=== PATIENT | female | born 1975 | race African-American/Black ===

== ENCOUNTER 2021-06-16 04:38 | Day surgery (SDC) | payer OTHER ==
[2021-06-12 16:09] VITALS: BMI 19.3
[2021-06-16] MEDS ORDERED: SUCCINYLCHOLINE CHLORIDE 200 MG/10 ML SYRINGE ONE (07:51)
[2021-06-16] MEDS ORDERED: GLYCOPYRROLATE 0.2 MG/1 ML VIAL ONE (07:51)
[2021-06-16] MEDS ORDERED: ROCURONIUM BROMIDE 50 MG/5 ML SYRINGE ONE (07:51)
[2021-06-16] MEDS ORDERED: PROPOFOL 20 ML ONE ×3 (07:51)
[2021-06-16] MEDS ORDERED: DEXAMETHASONE SOD PHOSPHATE 4 MG/1 ML VIAL ONE (07:51)
[2021-06-16] MEDS ORDERED: LIDOCAINE HCL/PF 2% SDV 5ML VIAL ONE (07:51)
[2021-06-16] MEDS ORDERED: MIDAZOLAM HCL 2 MG/2 ML SINGLE DOSE VIAL ONE (07:51)
[2021-06-16] MEDS ORDERED: ceFAZolin SODIUM 1 GM VIAL IVPB ONE (09:30)
[2021-06-16] MEDS ORDERED: NEOSTIGMINE METHYLSULFATE 0.5 MG/ML - 10 ML MDV ONE (10:23)
[2021-06-16] MEDS ORDERED: BUPIVACAINE HCL/PF 0.5% (5MG/ML) 10 ML VIAL ONE (10:24)
[2021-06-16] MEDS ORDERED: BUPIVACAINE HCL/PF 0.5% (5MG/ML) 10 ML VIAL NR ONE (10:30)
[2021-06-16] MEDS ORDERED: ACETAMINOPHEN INJECTION 100 ML IVPB ONE (10:55)
[2021-06-16] MEDS ORDERED: oxyCODONE HCL 5 MG TABLET PO PRN ×2 (11:35)
[2021-06-16] MEDS ORDERED: ACETAMINOPHEN 1000 MG/100 ML BAG IVPB ONE (11:35)
[2021-06-16] MEDS ORDERED: ONDANSETRON 4 MG/2 ML VIAL IVPUSH PRN (11:35)
[2021-06-16] MEDS ORDERED: LACTATED RINGERS SOLUTION 1,000 ML IV SCH (11:45)
[2021-06-16] MEDS ORDERED: HYDROmorphone HCL CARPU-JECT 2 MG/1 ML DISP.SYRIN IVPUSH ONE (12:26)
[2021-06-16] MEDS ORDERED: HYDROmorphone HCl 2 MG/ML VIAL ONE (12:28)
[2021-06-16] MEDS ORDERED: ONDANSETRON 4 MG/2 ML VIAL ONE (14:54)
[2021-06-16] MEDS ORDERED: oxyCODONE HCL 5 MG TABLET ONE (14:55)
[2021-06-16 19:54] VITALS: BP 119/76; PULSE 83; TEMP 97.3
== END 2021-06-16 20:02 | disposition home or self-care (01) ==
LOC: JASU-SURG 04:38
PROVIDERS: ATTEND Obstetrics & Gynecology
PROC: 0UJD8ZZ Inspection of Uterus and Cervix, Via Natural or Artificial Opening Endoscopic (ICD-10-PCS; 2021-06-16)
PROC: 0UB14ZZ Excision of Left Ovary, Percutaneous Endoscopic Approach (ICD-10-PCS; 2021-06-16)
PROC: 0UB64ZZ Excision of Left Fallopian Tube, Percutaneous Endoscopic Approach (ICD-10-PCS; 2021-06-16)
PROC: 0UDB7ZX Extraction of Endometrium, Via Natural or Artificial Opening, Diagnostic (ICD-10-PCS; principal; 2021-06-16 09:00)
DX: N92.1 Excessive and frequent menstruation with irregular cycle (principal); D25.0 Submucous leiomyoma of uterus; N83.292 Other ovarian cyst, left side; D25.2 Subserosal leiomyoma of uterus
CPT/HCPCS: 81025; 86850; 86900; 86901; 88108; 88305-TC; 88307-TC; 94760

== ENCOUNTER 2021-10-19 22:15 | Emergency (ER) | payer OTHER ==
[2021-10-19 22:24] VITALS: BP 119/76; PULSE 87; RESP 19; TEMP 98.3; BMI 19.3
[2021-10-19 23:18] LABS: EOS % 1.6 % (0-4.5); HEMOGLOBIN 11.6 GM/dL (10.7-15.3); LYMPH % 37.6 % (8-40); MCH 32.3 pg (25.7-33.7); MCHC 34.3 g/dl (32.0-36.0); MEAN CELL VOLUME 94.2 fl (80-96); MEAN PLT VOLUME 7.8 fl (7.5-11.1); MONO % 12.7 % (3.8-10.2); NEUT % 47.1 % (42.8-82.8); PLATELET COUNT 218 10^3/uL (134-434); RBC 3.61 M/mm3 (3.60-5.2); RDW 13.7 % (11.6-15.6); WHITE BLOOD COUNT 4.8 K/mm3 (4.0-10.0)
[2021-10-19 23:25] LABS: INR 1.18 (0.83-1.09); PROTHROMBIN TIME (PATIENT) 13.6 SEC (9.7-13.0)
[2021-10-19 23:28] LABS: ACTIVATED PTT 28.1 SECONDS (25.2-36.5)
[2021-10-20 01:53] LABS: EPI CELLS >36 /uL (0-25.1); HYALINE CASTS 0 /uL (0-3.1); PH,URINE 6.5 (5.0-8.0); URINE APPEARANCE CLEAR; URINE BACTERIA 16 /uL (0-1359); URINE BILIRUBIN NEGATIVE (NEGATIVE); URINE COLOR YELLOW; URINE GLUCOSE (UA) NEGATIVE (NEGATIVE); URINE KETONE NEGATIVE (NEGATIVE); URINE LEUK ESTERASE NEGATIVE (NEGATIVE); URINE NITRITE NEGATIVE (NEGATIVE); URINE PROTEIN NEGATIVE (NEGATIVE); URINE RBC 41 /uL (0-23.9); URINE UROBILINOGEN 0.2 mg/dL (0.2-1.0); URINE WBC 10 /uL (0-25.8)
== END 2021-10-20 02:47 | disposition home or self-care (01) ==
LOC: JER 22:15
DX: O26.891 Other specified pregnancy related conditions, first trimester (principal); R53.83 Other fatigue; Z3A.01 Less than 8 weeks gestation of pregnancy
CPT/HCPCS: 36415; 76830-TC; 81003; 84702; 85025; 85610; 85730; 86850; 86900; 86901; 87086; 93005; 93010; 99285-25

== ENCOUNTER 2022-05-29 18:25 | Inpatient (IN) | payer OTHER ==
[2022-05-29] MEDS ORDERED: PROMETHAZINE HCL 25 MG/1 ML VIAL IVPB ONE (19:54)
[2022-05-29] MEDS ORDERED: BUTORPHANOL TARTRATE 2 MG/ML VIAL IVPUSH ONE (19:54)
[2022-05-29] MEDS ORDERED: AMPICILLIN - 2 GM in SODIUM CHLORIDE 100 ML IVPB ONE (19:55)
[2022-05-29] MEDS ORDERED: OXYTOCIN 30 UNITS in 0.9% NS 30 UNIT/500 ML INFUS.BAG IVPB SCH (20:15)
[2022-05-29 20:38] LABS: BASO % 0.1 % (0-2.0); EOS % 0.3 % (0-4.5); HEMATOCRIT 27.5 % (32.4-45.2); HEMOGLOBIN 9.7 GM/dL (10.7-15.3); LYMPH % 15.4 % (8-40); MCH 34.5 pg (25.7-33.7); MCHC 35.3 g/dl (32.0-36.0); MEAN CELL VOLUME 97.8 fl (80-96); MEAN PLT VOLUME 8.3 fl (7.5-11.1); MONO % 8.4 % (3.8-10.2); NEUT % 75.8 % (42.8-82.8); PLATELET COUNT 193 10^3/uL (134-434); RBC 2.81 M/mm3 (3.60-5.2); RDW 13.9 % (11.6-15.6); WHITE BLOOD COUNT 10.6 K/mm3 (4.0-10.0)
[2022-05-29] MEDS: ELECTROLYTE-148 SOLN 1,000 ML IV SCH (20:45)
[2022-05-29] MEDS ORDERED: AMPICILLIN SODIUM 2 GM VIAL ONE (20:46)
[2022-05-29 20:50] LABS: INR 1.03 (0.83-1.09)
[2022-05-29 20:53] LABS: ACTIVATED PTT 24.8 SECONDS (25.2-36.5)
[2022-05-29 20:58] LABS: CALCIUM 10.2 mg/dL (8.5-10.1); POTASSIUM 3.6 mmol/L (3.5-5.1)
[2022-05-29 20:59] LABS: BLOOD UREA NITROGEN 9.7 mg/dL (7-18)
[2022-05-29 21:02] LABS: CREATININE 0.7 mg/dL (0.55-1.3)
[2022-05-29 21:31] VITALS: BMI 25.7
[2022-05-29 21:56] LABS: HIV INTERPRETATION NEGATIVE (NEGATIVE)
[2022-05-29] MEDS ORDERED: OXYTOCIN 30 UNITS in 0.9% NS 30 UNIT/500 ML INFUS.BAG IVPB ONE (22:02)
[2022-05-30] MEDS ORDERED: AMPICILLIN SODIUM 1 GM VIAL ONE ×4 (00:25→12:06)
[2022-05-30] MEDS: AMPICILLIN - 1 GM in SODIUM CHLORIDE 100 ML IVPB SCH ×4 (00:30→12:08)
[2022-05-30] MEDS: ELECTROLYTE-148 SOLN 1,000 ML IV SCH ×3 (03:30→20:13)
[2022-05-30] MEDS ORDERED: BUTORPHANOL TARTRATE 2 MG/ML VIAL ONE (11:12)
[2022-05-30] MEDS ORDERED: PROMETHAZINE HCL 25 MG/1 ML VIAL ONE (11:12)
[2022-05-30] MEDS ORDERED: OXYTOCIN 20 UNITS in 0.9% NS 20 UNIT/1,000 ML INFUS.BAG IV ONE (11:26)
[2022-05-30] MEDS ORDERED: FENTANYL CITRATE/PF 50 MCG/ML VIAL ONE (14:45)
[2022-05-30] MEDS ORDERED: MIDAZOLAM HCL 2 MG/2 ML SINGLE DOSE VIAL ONE (14:45)
[2022-05-30] MEDS ORDERED: SUCCINYLCHOLINE CHLORIDE 200 MG/10 ML SYRINGE ONE (14:49)
[2022-05-30] MEDS ORDERED: PROPOFOL 40 ML ONE (14:49)
[2022-05-30] MEDS ORDERED: CEFAZOLIN SODIUM 2 GM in SODIUM CHLORIDE 100 ML IVPB ONE (15:00)
[2022-05-30] MEDS ORDERED: CEFAZOLIN SODIUM 2 GM in DEXTROSE 5%-WATER 100 ML IVPB ONE (15:00)
[2022-05-30] MEDS ORDERED: OXYTOCIN 10 UNITS/ML VIAL ONE (15:02)
[2022-05-30 15:05] LABS: CORD BASE EXCESS -2.1 mmol/L (0-2); CORD HCO3 22.5 mmHg (20-29); CORD PCO2 38.4 mmHg (30-78); CORD pH 7.386 (7.14-7.44)
[2022-05-30] MEDS ORDERED: METHYLERGONOVINE MALEATE 0.2 MG/1 ML AMP IM ONE (15:07)
[2022-05-30] MEDS ORDERED: CARBOPROST TROMETHAMINE 250 MCG/ML AMPUL IM ONE (15:08)
[2022-05-30] MEDS ORDERED: BISACODYL 10 MG SUPP.RECT RC PRN (15:10)
[2022-05-30] MEDS ORDERED: BENZOCAINE 28 GM HEMORRHOIDAL OINTMENT TP PRN (15:10)
[2022-05-30] MEDS ORDERED: ACETAMINOPHEN 325 MG TABLET (FP) PO PRN (15:10)
[2022-05-30] MEDS ORDERED: BENZOCAINE 20% 57 GM BOTTLE TP PRN (15:10)
[2022-05-30] MEDS ORDERED: oxyCODONE HCL 5 MG TABLET PO PRN (15:10)
[2022-05-30] MEDS ORDERED: WITCH HAZEL 50% (TUCKS) 40 PAD/JAR PAD TP PRN (15:10)
[2022-05-30] MEDS ORDERED: METHYLERGONOVINE MALEATE 0.2 MG/1 ML AMP IM PRN (15:10)
[2022-05-30] MEDS ORDERED: CEFAZOLIN SODIUM 2 GM VIAL ONE (15:15)
[2022-05-30] MEDS ORDERED: OXYTOCIN 20 UNITS in 0.9% NS 20 UNIT/1,000 ML INFUS.BAG IV SCH (15:15)
[2022-05-30] MEDS ORDERED: SODIUM CHLORIDE 100 ML IVPB ONE (15:16)
[2022-05-30] MEDS ORDERED: NS IV SCH (15:57)
[2022-05-30] MEDS ORDERED: OXYTOCIN IV SCH ×2 (15:57→16:03)
[2022-05-30] MEDS ORDERED: SODIUM CHLORIDE IV SCH (16:03)
[2022-05-30 16:35] LABS: BASO % 0.1 % (0-2.0); EOS % 0.1 % (0-4.5); HEMATOCRIT 30.4 % (32.4-45.2); HEMOGLOBIN 10.6 GM/dL (10.7-15.3); LYMPH % 5.9 % (8-40); MCH 34.4 pg (25.7-33.7); MEAN CELL VOLUME 98.3 fl (80-96); MEAN PLT VOLUME 8.2 fl (7.5-11.1); MONO % 4.2 % (3.8-10.2); NEUT % 89.7 % (42.8-82.8); PLATELET COUNT 190 10^3/uL (134-434); RBC 3.09 M/mm3 (3.60-5.2); RDW 13.9 % (11.6-15.6); WHITE BLOOD COUNT 16.2 K/mm3 (4.0-10.0)
[2022-05-30 16:55] LABS: POTASSIUM 3.6 mmol/L (3.5-5.1)
[2022-05-30 17:00] LABS: CALCIUM 9.3 mg/dL (8.5-10.1)
[2022-05-30 17:01] LABS: ALBUMIN 2.4 g/dl (3.4-5.0); BLOOD UREA NITROGEN 7.2 mg/dL (7-18)
[2022-05-30 17:04] LABS: CREATININE 0.6 mg/dL (0.55-1.3)
[2022-05-30 17:06] LABS: BILIRUBIN,TOTAL 0.8 mg/dL (0.2-1); TOT PROT 6.2 g/dl (6.4-8.2)
[2022-05-30] MEDS ORDERED: IBUPROFEN 600 MG TABLET (FP) PO ONE (19:56)
[2022-05-30] MEDS ORDERED: METHYLERGONOVINE MALEATE 0.2 MG TABLET (FP) ONE (19:56)
[2022-05-30] MEDS: IBUPROFEN 600 MG TABLET (FP) PO PRN (20:05)
[2022-05-30] MEDS: METHYLERGONOVINE MALEATE 0.2 MG TABLET (FP) PO SCH (20:05)
[2022-05-31] MEDS: IBUPROFEN 600 MG TABLET (FP) PO PRN ×2 (02:03→11:06)
[2022-05-31] MEDS: METHYLERGONOVINE MALEATE 0.2 MG TABLET (FP) PO SCH ×3 (02:04→15:38)
[2022-05-31 06:46] LABS: BASO % 0.2 % (0-2.0); EOS % 0.5 % (0-4.5); HEMATOCRIT 26.5 % (32.4-45.2); HEMOGLOBIN 9.2 GM/dL (10.7-15.3); LYMPH % 9.9 % (8-40); MCHC 34.7 g/dl (32.0-36.0); MEAN CELL VOLUME 98.2 fl (80-96); MEAN PLT VOLUME 8.3 fl (7.5-11.1); MONO % 9.4 % (3.8-10.2); PLATELET COUNT 172 10^3/uL (134-434); RDW 13.8 % (11.6-15.6); WHITE BLOOD COUNT 16.1 K/mm3 (4.0-10.0)
[2022-05-31] MEDS: AMOX TR/POT CLAV 500MG/125MG TABLETS (FP) PO SCH ×3 (11:07→17:31)
[2022-05-31] MEDS ORDERED: SENNOSIDES/DOCUSATE COMBO (SENNA PLUS) TABLET (UD) PO PRN (22:00)
[2022-06-01] MEDS: IBUPROFEN 600 MG TABLET (FP) PO PRN (01:14)
[2022-06-01 08:55] LABS: BASO % 0.2 % (0-2.0); EOS % 1.1 % (0-4.5); HEMATOCRIT 25.9 % (32.4-45.2); HEMOGLOBIN 9.1 GM/dL (10.7-15.3); LYMPH % 19.4 % (8-40); MCH 34.5 pg (25.7-33.7); MEAN CELL VOLUME 98.5 fl (80-96); MONO % 8.8 % (3.8-10.2); NEUT % 70.5 % (42.8-82.8); PLATELET COUNT 191 10^3/uL (134-434); RBC 2.63 M/mm3 (3.60-5.2); RDW 14.3 % (11.6-15.6)
[2022-06-01 09:47] LABS: POC NITRAZINE POS
[2022-06-01] MEDS: AMOX TR/POT CLAV 500MG/125MG TABLETS (FP) PO SCH ×2 (09:56→13:39)
[2022-06-01 15:11] VITALS: BP 130/63; PULSE 89; RESP 16; TEMP 98.2
== END 2022-06-01 16:00 | disposition home or self-care (01) | DRG 560 ==
LOC: JDEL 18:25 → JLDR 19:20 → J3W 05-30 21:08
PROVIDERS: ADMIT Obstetrics & Gynecology; ATTEND Obstetrics & Gynecology
PROC: 0W8NXZZ Division of Female Perineum, External Approach (ICD-10-PCS; principal; 2022-05-30)
PROC: 10E0XZZ Delivery of Products of Conception, External Approach (ICD-10-PCS; 2022-05-30)
DX: O42.92 Full-term premature rupture of membranes, unspecified as to length of time between rupture and onset of labor (principal); Z3A.37 37 weeks gestation of pregnancy; Z37.0 Single live birth
CPT/HCPCS: 36415; 36600; 80048; 80053; 82803; 83986-QW; 85025; 85610; 85730; 86780; 86850; 86900; 86901; 86922; 87389; 88307-TC; C9803-CS; U0003; U0005

== ENCOUNTER 2022-06-17 18:56 | Inpatient (IN) | payer OTHER ==
[2022-06-17 19:02] VITALS: BMI 23.7
[2022-06-17] MEDS ORDERED: LABETALOL HCL 5 MG/1 ML (100MG/20 ML VIAL) IVPUSH ONE ×3 (19:44→23:25)
[2022-06-17] MEDS ORDERED: MAGNESIUM SULF 50% (8.12 MEQ/2 ML-1 GM VIAL) IVPB ONE ×2 (19:46→23:24)
[2022-06-17] MEDS ORDERED: ACETAMINOPHEN 1000 MG/100 ML BAG IVPB ONE (19:50)
[2022-06-17] MEDS ORDERED: LABETALOL HCL 20 MG/4 ML VIAL ONE ×2 (20:35→23:08)
[2022-06-17] MEDS ORDERED: MAGNESIUM SULFATE IN WATER 2 GM/50 ML IVPB IVPB ONE ×2 (20:36→21:34)
[2022-06-17] MEDS ORDERED: ACETAMINOPHEN INJECTION 100 ML IVPB ONE (20:36)
[2022-06-17 20:49] LABS: BASO % 0.5 % (0-2.0); EOS % 1.9 % (0-4.5); HEMATOCRIT 33.8 % (32.4-45.2); HEMOGLOBIN 11.9 GM/dL (10.7-15.3); LYMPH % 36.6 % (8-40); MCH 33.9 pg (25.7-33.7); MCHC 35.1 g/dl (32.0-36.0); MEAN CELL VOLUME 96.8 fl (80-96); MEAN PLT VOLUME 7.4 fl (7.5-11.1); MONO % 8.7 % (3.8-10.2); NEUT % 52.3 % (42.8-82.8); PLATELET COUNT 318 10^3/uL (134-434); RBC 3.49 M/mm3 (3.60-5.2); RDW 13.3 % (11.6-15.6); WHITE BLOOD COUNT 4.8 K/mm3 (4.0-10.0)
[2022-06-17 20:54] LABS: INR 1.05 (0.83-1.09); PROTHROMBIN TIME (PATIENT) 12.2 SEC (9.7-13.0)
[2022-06-17 20:57] LABS: ACTIVATED PTT 29.6 SECONDS (25.2-36.5)
[2022-06-17 21:07] LABS: POTASSIUM 3.9 mmol/L (3.5-5.1)
[2022-06-17 21:08] LABS: CALCIUM 10.4 mg/dL (8.5-10.1)
[2022-06-17 21:09] LABS: ALBUMIN 3.4 g/dl (3.4-5.0); BLOOD UREA NITROGEN 17.6 mg/dL (7-18)
[2022-06-17 21:13] LABS: TOT PROT 7.4 g/dl (6.4-8.2)
[2022-06-17 21:14] LABS: BILIRUBIN,TOTAL 0.3 mg/dL (0.2-1)
[2022-06-17 21:20] LABS: EPI CELLS 4 /uL (0-25.1); HYALINE CASTS 1 /uL (0-3.1); PH,URINE 6.5 (5.0-8.0); URINE APPEARANCE CLEAR; URINE BACTERIA 172 /uL (0-1359); URINE BILIRUBIN NEGATIVE (NEGATIVE); URINE COLOR YELLOW; URINE GLUCOSE (UA) NEGATIVE (NEGATIVE); URINE KETONE NEGATIVE (NEGATIVE); URINE LEUK ESTERASE 3+ (NEGATIVE); URINE NITRITE NEGATIVE (NEGATIVE); URINE PROTEIN NEGATIVE (NEGATIVE); URINE RBC 33 /uL (0-23.9); URINE UROBILINOGEN 0.2 mg/dL (0.2-1.0); URINE WBC 595 /uL (0-25.8)
[2022-06-17] MEDS ORDERED: CEFTRIAXONE 1,000 MG in DEXTROSE 5%-WATER - 50 ML IVPB ONE (21:39)
[2022-06-17] MEDS ORDERED: CEFTRIAXONE 1 GM/50 ML BAG ONE (21:54)
[2022-06-17] MEDS ORDERED: MAGNESIUM 1GM/D5W - 1 GM/100 ML IVPB IVPB ONE (23:50)
[2022-06-18] MEDS ORDERED: LABETALOL HCL 20 MG/4 ML VIAL ONE (00:29)
[2022-06-18] MEDS ORDERED: MAGNESIUM SULFATE 20GM/500ML - 20 GM/500 ML INFUS.BAG IVPB SCH (01:00)
[2022-06-18] MEDS: LABETALOL HCL INJECTION 300 MG in SODIUM CHLORIDE 240 ML IV SCH ×3 (01:28→07:38)
[2022-06-18] MEDS: MAGNESIUM SULFATE 20GM/500ML - 20 GM/500 ML INFUS.BAG IVPB SCH ×2 (02:16→22:55)
[2022-06-18 07:14] LABS: BASO % 0.2 % (0-2.0); EOS % 1.9 % (0-4.5); HEMOGLOBIN 10.9 GM/dL (10.7-15.3); LYMPH % 29.6 % (8-40); MCH 34.6 pg (25.7-33.7); MCHC 36.2 g/dl (32.0-36.0); MEAN CELL VOLUME 95.7 fl (80-96); MEAN PLT VOLUME 7.9 fl (7.5-11.1); MONO % 8.2 % (3.8-10.2); NEUT % 60.1 % (42.8-82.8); PLATELET COUNT 274 10^3/uL (134-434); RBC 3.14 M/mm3 (3.60-5.2); RDW 12.6 % (11.6-15.6); WHITE BLOOD COUNT 5.3 K/mm3 (4.0-10.0)
[2022-06-18 07:27] LABS: POTASSIUM 3.8 mmol/L (3.5-5.1)
[2022-06-18 07:31] LABS: ALBUMIN 2.9 g/dl (3.4-5.0); BLOOD UREA NITROGEN 14.4 mg/dL (7-18); CALCIUM 9.3 mg/dL (8.5-10.1); MAGNESIUM 3.9 mg/dL (1.8-2.4)
[2022-06-18 07:35] LABS: CREATININE 0.7 mg/dL (0.55-1.3); PHOSPHOROUS 3.2 mg/dL (2.5-4.9)
[2022-06-18 07:37] LABS: BILIRUBIN,TOTAL 0.5 mg/dL (0.2-1); TOT PROT 6.7 g/dl (6.4-8.2)
[2022-06-18] MEDS: MUPIROCIN 2% TOPICAL OINTMENT FOR DECOLONIZATION NS SCH ×2 (11:13→22:07)
[2022-06-18] MEDS ORDERED: LABETALOL HCL 100 MG TABLET (FP) PO SCH ×2 (11:45)
[2022-06-18] MEDS: ACETAMINOPHEN 325 MG TABLET (FP) PO PRN ×2 (12:37→18:40)
[2022-06-18] MEDS ORDERED: LABETALOL HCL 200 MG TABLET (FP) PO ONE (12:45)
[2022-06-18] MEDS ORDERED: LACTATED RINGERS SOLUTION 1000 ML INFUS.BAG IV ONE (13:01)
[2022-06-18 16:15] LABS: CHLORIDE 113 mmol/L (98-107); POTASSIUM 4.4 mmol/L (3.5-5.1); SODIUM 141 mmol/L (136-145)
[2022-06-18 16:17] LABS: ANION GAP 4 MMOL/L (8-16); BLOOD UREA NITROGEN 11.4 mg/dL (7-18); CALCIUM 9.2 mg/dL (8.5-10.1); CO2 24 mmol/L (21-32); GLUCOSE,RANDOM 104 mg/dL (74-106)
[2022-06-18 16:20] LABS: CREATININE 0.8 mg/dL (0.55-1.3)
[2022-06-18 16:25] LABS: MAGNESIUM 5.1 mg/dL (1.8-2.4)
[2022-06-18 21:02] LABS: MAGNESIUM 5.4 mg/dL (1.8-2.4)
[2022-06-18] MEDS ORDERED: CHLORHEXIDINE GLUCONATE 4% CLEANSER FOR DECOLONIZATION TP SCH (22:00)
[2022-06-19 00:47] LABS: MAGNESIUM 5.5 mg/dL (1.8-2.4)
[2022-06-19 06:37] LABS: HEMATOCRIT 31.8 % (32.4-45.2); HEMOGLOBIN 11.4 GM/dL (10.7-15.3); MCH 34.3 pg (25.7-33.7); MCHC 35.9 g/dl (32.0-36.0); MEAN CELL VOLUME 95.7 fl (80-96); MEAN PLT VOLUME 7.6 fl (7.5-11.1); PLATELET COUNT 282 10^3/uL (134-434); RBC 3.32 M/mm3 (3.60-5.2); RDW 13.3 % (11.6-15.6); WHITE BLOOD COUNT 5.3 K/mm3 (4.0-10.0)
[2022-06-19 06:54] LABS: POTASSIUM 3.8 mmol/L (3.5-5.1)
[2022-06-19 06:57] LABS: CALCIUM 8.6 mg/dL (8.5-10.1)
[2022-06-19 06:58] LABS: BLOOD UREA NITROGEN 10.4 mg/dL (7-18)
[2022-06-19 07:01] LABS: CREATININE 0.8 mg/dL (0.55-1.3); PHOSPHOROUS 3.2 mg/dL (2.5-4.9)
[2022-06-19 07:02] LABS: BILIRUBIN,TOTAL 0.4 mg/dL (0.2-1); TOT PROT 6.9 g/dl (6.4-8.2)
[2022-06-19] MEDS: MUPIROCIN 2% TOPICAL OINTMENT FOR DECOLONIZATION NS SCH (09:03)
[2022-06-19] MEDS ORDERED: NIFEdipine E.R 60 MG TABLET PO SCH (10:00)
[2022-06-19 13:25] VITALS: BP 133/86; PULSE 82; RESP 18; TEMP 98
== END 2022-06-19 12:10 | disposition home or self-care (01) | DRG 561 ==
LOC: JER 18:56 → JERBED 23:34 → JICU 06-18 01:51
PROVIDERS: ADMIT Internal Medicine Pulmonary Disease; ATTEND Internal Medicine Pulmonary Disease
DX: O14.95 Unspecified pre-eclampsia, complicating the puerperium (principal); I16.1 Hypertensive emergency; R51.9 Headache, unspecified; R80.9 Proteinuria, unspecified
CPT/HCPCS: 0241U-QW; 36415; 70450-TC; 71045-TC-FY; 80048; 80053; 81003; 82570; 83615; 83735; 84100; 84156; 84484; 85025; 85027; 85610; 85730; 86850; 86900; 86901; 87077; 87086; 93005; 93010; 99291; 99292